=== PATIENT | male | born 1985 | race African-American/Black ===

== ENCOUNTER 2019-11-28 12:08 | Emergency (ER) | payer MEDICAID ==
[~2019-11-28] VITALS: Ht 180.3 cm; Wt 90.7 kg
--- NOTE | 2019-11-28 12:22 | NUR ---
PT AMBULATED INTO THE ER WITH A C/O URETHRAL DISCHARGE AND DYSURIA. PT AMBULATED TO ER 13 WITH A STEADY GAIT.
[2019-11-28] MEDS ORDERED: IV NS 0.9% 1,000 ML BAG IV ONE (12:30)
--- NOTE | 2019-11-28 12:47 | NUR ---
PT IS IN CT.
--- NOTE | 2019-11-28 12:50 | NUR ---
PT RETURNED FROM CT.
[2019-11-28 13:02] LABS: BASOPHILS # (AUTO) 0.1 /CMM (0.0-0.2); BASOPHILS % (AUTO) 0.8 % (0.0-2.0); EOSINOPHILS % (AUTO) 1.5 % (0.0-6.0); HEMATOCRIT 42 % (39-51); HEMOGLOBIN 14.3 g/dL (13.5-17.5); LYMPHOCYTES # (AUTO) 1.9 /CMM (0.8-4.8); LYMPHOCYTES % (AUTO) 25.1 % (20.0-44.0); MEAN CORPUSCULAR HGB CONC 34 g/dl (31.0-36.0); MEAN CORPUSCULAR VOLUME 95 fL (80-96); MONOCYTES # (AUTO) 0.7 /CMM (0.1-1.30); MONOCYTES % (AUTO) 8.8 % (2.0-12.0); NEUTROPHILS # (AUTO) 4.7 /CMM (1.8-8.9); NEUTROPHILS % (AUTO) 63.8 % (43.0-81.0); PLATELET COUNT (AUTO) 247 /CMM (150-450); RED BLOOD CELL COUNT(AUTO) 4.36 MIL/uL (4.5-6.0); WHITE BLOOD COUNT (AUTO) 7.4 K/uL (4.3-11.0)
[2019-11-28 13:18] LABS: ALBUMIN 3.6 g/dL (3.4-5.0); BILIRUBIN,DIRECT 0.1 mg/dL (0.0-0.2); BILIRUBIN,TOTAL 0.3 mg/dL (0.2-1.0); CALCIUM, SERUM 8.6 mg/dL (8.5-10.1); CREATININE 1.1 mg/dL (0.6-1.3); POTASSIUM 3.8 mmol/L (3.5-5.1); TOTAL PROTEIN, SERUM 6.6 g/dL (6.4-8.2)
[2019-11-28 14:37] LABS: APPEARANCE,URINE SL CLOUDY (CLEAR); BILIRUBIN,URINE NEGATIVE (NEGATIVE); BLOOD, URINE MODERATE Ery/uL (NEGATIVE); COLOR,URINE YELLOW (YELLOW); KETONES,URINE NEGATIVE (NEGATIVE); LEUKOCYTE ESTERASE ,URINE NEGATIVE (NEGATIVE); NITRITE, URINE NEGATIVE (NEGATIVE); PROTEIN,URINE NEGATIVE (NEGATIVE); UGLUCOSE NEGATIVE (NEGATIVE); UROBILINOGEN,URINE 0.2 EU/dL (0.2)
[2019-11-28 14:47] LABS: BACTERIA,URINE Rare /HPF (None Seen); SQUAMOUS EPITHELIAL CELL,UR Rare /HPF (None Seen)
[2019-11-28] MEDS ORDERED: AZITHROMYCIN 250 MG TABLET PO ONE (15:30)
[2019-11-28] MEDS ORDERED: CEFTRIAXONE 500 MG VIAL ONE (15:31)
[2019-11-28] MEDS ORDERED: LIDOCAINE /MPF 1% VIAL 5 ML VIAL ONE (15:31)
[2019-11-28] MEDS ORDERED: AZITHROMYCIN 250 MG TABLET ONE (15:31)
[2019-11-28] MEDS: CEFTRIAXONE 1 G VIAL IM ONE ×2 (15:35→15:36)
--- NOTE | 2019-11-28 15:43 | NUR ---
IV removed. Catheter intact and site benign. Pressure and 4x4 applied to site. No bleeding noted. Patient discharged to home in stable condition. Written and verbal after care instructions given. Patient verbalizes understanding of instruction AND RX. PT AMBULATED OUT WITH A STEADY GAIT. VSS. NAD NOTED.
[2019-11-28 15:46] VITALS: BP 128/79
[2019-11-28] MEDS ORDERED: CEFTRIAXONE 500 MG VIAL IM ONE (16:00)
== END 2019-11-28 15:46 | disposition home or self-care (01) ==
LOC: ER 12:10
DX: N34.2 Other urethritis (principal)
CPT/HCPCS: 36415; 74176; 80048; 80076; 81001; 85025; 85730; 87086; 87491; 87591; 96372; 99284; J0696; J3490; J7030; 81000-TC